=== PATIENT | male | born 1940 | race Caucasian/White ===

== ENCOUNTER → 2017-06-09 | Outpatient (CLI) | payer MEDICARE ==
--- NOTE | 2017-06-09 18:08 | PCVCIMAG ---
APPROVED REPORT Study performed: 06/09/2017 14:06:20 EXAM: Comprehensive 2D, Doppler, and color-flow Echocardiogram Patient Location: Echo lab Status: routine Other Information Study Quality: Adequate Indications Aortic Valve Disease Pacemaker CAD Cardiomyopathy ICD, Aortic Stenosis, S/P stent 2D Dimensions LVEF(%): 46.10 (>50%) IVSd: 13.38 (7-11mm)LVOT Diam: 22.43 (18-24mm) LVDd: 42.49 mm PWd: 12.72 (7-11mm) LVDs: 32.81 (25-40mm) Left Atrium: 38.38 (27-40mm) Aortic Root: 34.97 mm LV Single Plane 4CH: 63.24 % LV Single Plane 2CH: 58.83 %Hou's LVEF: 61.03 % Biplane EF: 61.5 % Volumes Left Atrial Volume (Systole) Single Plane 4CH: 49.98 mLSingle Plane 2CH: 64.55 mL LA ESV Index: 28.00 mL/m2 Aortic Valve AoV Peak Les.: 2.84 m/s AO Peak Gr.: 32.34 mmHgLVOT Max P.03 mmHg AO Mean Gr.: 17.74 mmHgLVOT Mean P.07 mmHg AO V2 Mean: 1.97 m/sLVOT Max V: 1.00 m/s AO V2 VTI: 55.34 cmLVOT Mean V: 0.68 m/s TYRONE (VTI): 1.42 [id number] V1 VTI: 19.92 cm TYRONE Vmax: 1.40 cm2 SV (LVOT): 78.72 mL Mitral Valve E/A Ratio: 0.7 MV Decel. Time: 261.00 ms MV E Max Les.: 0.60 m/s MV A Les.: 0.88 m/s IVRT: 114.19 ms Pulmonary Valve PV Peak Les.: 0.77 m/sPV Peak Gr.: 2.36 mmHg Pulmonary Vein P Vein S: 0.29 m/sP Vein A: 0.36 m/s P Vein D: 0.38 m/sP Vein A Dur.: 131.5 msec P Vein S/D Ratio: 0.76 Tricuspid Valve TR Peak Les.: 2.71 m/s TR Peak Gr.: 29.31 mmHg Left Ventricle The left ventricle is normal size. There is normal LV segmental wall motion. Mild concentric left ventricular hypertrophy. Left ventricular systolic function is normal. LVEF is 55-60%. Grade I - abnormal relaxation pattern. Right Ventricle The right ventricle is normal size. There is normal right ventricular wall thickness. There is normal right ventricular wall thickness. The right ventricular systolic function is normal. Pacemaker lead is present in the right ventricle. Atria The left atrium size is normal. Pacemaker lead is present in the right atrium. Aortic Valve The aortic valve is mildly calcified. The aortic valve is trileaflet. No aortic regurgitation is present. Mild aortic stenosis. There is mild valvular aortic stenosis. Calculated aortic valve area is 1.4 cm2 with maximum pressure gradient of 32 mmHg and mean pressure gradient of 18 mmHg. Mitral Valve The mitral valve is normal in structure. Mild to moderate mitral regurgitation. No evidence of mitral valve stenosis. Tricuspid Valve The tricuspid valve is normal in structure. Mild tricuspid regurgitation with a PAP of 36 mmHg. Pulmonic Valve The pulmonary valve is normal in structure. There is no pulmonic valvular regurgitation. Great Vessels The aortic root is normal in size. IVC is normal in size and collapses with >50% inspiration Pericardium There is no pericardial effusion. <Conclusion> The left ventricle is normal size. Mild concentric left ventricular hypertrophy. Left ventricular systolic function is normal. LVEF is 55-60%. Grade I - abnormal relaxation pattern. The right ventricle is normal size. The left atrium size is normal. The aortic valve is mildly calcified. The aortic valve is trileaflet. . There is mild valvular aortic stenosis. Calculated aortic valve area is 1.4 cm2 with maximum pressure gradient of 32 mmHg and mean pressure gradient of 18 mmHg. Mild to moderate mitral regurgitation. IVC is normal in size and collapses with >50% inspiration Mild tricuspid regurgitation with a PAP of 36 mmHg. There is no pericardial effusion.
== END | disposition home or self-care (01) ==
LOC: PCVCIMAG 14:12
PROVIDERS: ATTEND Internal Medicine Cardiovascular Disease
DX: I08.3 Combined rheumatic disorders of mitral, aortic and tricuspid valves (principal); I25.10 Atherosclerotic heart disease of native coronary artery without angina pectoris; I42.9 Cardiomyopathy, unspecified; I10 Essential (primary) hypertension; E78.00 Pure hypercholesterolemia, unspecified; E11.9 Type 2 diabetes mellitus without complications; I47.2 Ventricular tachycardia; I44.7 Left bundle-branch block, unspecified; Z95.810 Presence of automatic (implantable) cardiac defibrillator; Z79.82 Long term (current) use of aspirin; Z79.899 Other long term (current) drug therapy; Z88.8 Allergy status to other drugs, medicaments and biological substances
CPT/HCPCS: 80061; 93005; 93284; 93306; G0463

== ENCOUNTER → 2018-02-04 | Outpatient (CLI) | payer MEDICARE | END | disposition home or self-care (01) | LOC: PCVCCLINIC 12:50 | DX: I25.10 Atherosclerotic heart disease of native coronary artery without angina pectoris (principal); E78.00 Pure hypercholesterolemia, unspecified; I35.0 Nonrheumatic aortic (valve) stenosis; E11.9 Type 2 diabetes mellitus without complications; I10 Essential (primary) hypertension; I42.9 Cardiomyopathy, unspecified; R94.31 Abnormal electrocardiogram [ECG] [EKG]; Z95.810 Presence of automatic (implantable) cardiac defibrillator; Z79.899 Other long term (current) drug therapy; Z79.82 Long term (current) use of aspirin | CPT/HCPCS: 80061; 93005; G0463 ==

== ENCOUNTER → 2018-12-25 | Outpatient (CLI) | payer MEDICARE | END | disposition home or self-care (01) | LOC: PCVCCLINIC 13:08 | PROVIDERS: ATTEND Internal Medicine Cardiovascular Disease | DX: I25.10 Atherosclerotic heart disease of native coronary artery without angina pectoris (principal); E78.00 Pure hypercholesterolemia, unspecified; I10 Essential (primary) hypertension; E11.9 Type 2 diabetes mellitus without complications; I47.2 Ventricular tachycardia; I35.0 Nonrheumatic aortic (valve) stenosis; Z95.810 Presence of automatic (implantable) cardiac defibrillator | CPT/HCPCS: 36415; 80061; 93284; G0463 ==

== ENCOUNTER → 2019-06-24 | Outpatient (CLI) | payer MEDICARE | END | disposition home or self-care (01) | LOC: PCVCCLINIC 14:45 | PROVIDERS: ATTEND Internal Medicine Cardiovascular Disease | DX: I25.10 Atherosclerotic heart disease of native coronary artery without angina pectoris (principal); I42.9 Cardiomyopathy, unspecified; I47.2 Ventricular tachycardia; I35.0 Nonrheumatic aortic (valve) stenosis; E78.5 Hyperlipidemia, unspecified; E11.9 Type 2 diabetes mellitus without complications; I10 Essential (primary) hypertension; Z95.0 Presence of cardiac pacemaker; Z88.8 Allergy status to other drugs, medicaments and biological substances; Z72.89 Other problems related to lifestyle; Z79.82 Long term (current) use of aspirin; Z79.899 Other long term (current) drug therapy | CPT/HCPCS: 36415; 80061; 93005; G0463 ==

== ENCOUNTER → 2019-09-24 | Outpatient (CLI) | payer MEDICARE ==
[~2019-09-24] MED LIST: REGADENOSON 0.4 MG/5 ML DISP.SYRIN. IV ONE
--- NOTE | 2019-09-24 16:53 | PCVCIMAG ---
APPROVED REPORT Imaging Protocol: Rest Tc-99m/Stress Tc-99m 1 day Study performed: 09/24/2019 10:35:42 Indication: Pre-Operative CV evaluation, CAD, ICM Patient Location: Out-Patient Stress Nurse: Dede Hernandez RN NC Tech:Laine Goldsmith [facility] Ht: 6 ft 0 in Wt: 180 lbs BSA: 2.04 m2 HR: 79 bpm BP: 141/81 mmHg BMI: 24.4 Rhythm: V - Paced Medical History Medical History: CAD s/p MS, Diabetes Medications: Carvedilol, Aspirin, Lisinopril, Crestor, KCL, Furosemide Allergies: Morhine, Tetracycline Cardiac Risk Factors: Age Previous Cardiac Procedures: PCI Pretest Chest Pain Characteristics: No chest pain Meds Held (24 hrs): Carvedilol Resting Data Rest SPECT myocardial perfusion imaging was performed in supine position 45 minutes following the intravenous injection of 10 mCi of Tc-99m Sestamibi. Time of rest injection: 1000 Date: 09/24/2019 Administration Route: IV Administration Site: Left AC Pharmacologic Stress Pharmacologic stress test was performed by injecting Regadenoson 0.4 mg IV push over 10-15 seconds immediately followed by the intravenous injection of 31.7 mCi of Tc-99m Sestamibi. Time of stress injection: 1130 Date: 09/24/2019 Administration Route: IV Administration Site: Left AC Gated Stress SPECT was performed 45 minutes after stress injection. The images were gated to evaluate regional wall motion and calculate left ventricular ejection fraction. Stress Test Details Stress Test: Pharmacologic stress testing performed using 0.4 mg of regadenoson per 5 mL given IV over 10 seconds. Reason for pharmacologic stress test: pacemaker. HRMax Heart Rate (APMHR): 143 bpm Resting HR: 79 bpmTarget HR (85% APMHR): 121 bpm Max HR Achieved: 91 bpm % of APMHR: 63 Recovery HR: 86 bpm BP Resting BP: 141/81 mmHg Max BP: 146/74 mmHg Recovery BP: 121/64 mmHg ECG Resting ECG: V paced rhythm Stress ECG: V paced rhythm Arrhythmia: PVC's Recovery ECG: V paced rhythm Clinical Reason for Termination: Completed protocol Stress Symptoms: Abdominal discomfort, Dyspnea Symptoms resolved with caffeine. Stress ECG Conclusion non diagnostic paced Study Quality Study: Good Study Data Post stress, the left ventricular ejection was 37%.. SSS: 13 SRS: 11 SDS: 2 TID = 1.06. Perfusion No evidence of stress induced ischemia. 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 Wall Motion Moderately decreased left ventricular systolic function. Nuclear Conclusion No evidence of stress induced ischemia. 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 Post stress, the left ventricular ejection was 37%. No prior study available for comparison. Interpreted by: Anthony Pearson MD Electronically Approved: 09/24/2019 13:15:25 <Conclusion> non diagnostic paced
== END | disposition home or self-care (01) ==
LOC: PCVCIMAG 09:56
PROVIDERS: ATTEND Internal Medicine Cardiovascular Disease
DX: I25.10 Atherosclerotic heart disease of native coronary artery without angina pectoris (principal); I42.9 Cardiomyopathy, unspecified; I47.2 Ventricular tachycardia; I35.0 Nonrheumatic aortic (valve) stenosis; I10 Essential (primary) hypertension; Z95.0 Presence of cardiac pacemaker; Z88.1 Allergy status to other antibiotic agents
CPT/HCPCS: 78452; 93017; A9500; J2785